=== PATIENT | female | born 1930 | race Caucasian/White ===

== ENCOUNTER 2017-10-31 11:43 | Outpatient (CLI) | payer MEDICARE ==
--- NOTE | 2017-10-31 15:09 | RAD ---
THREE VIEWS OF THE SACRUM AND COCCYX: Date: 10-31-17 History: Chronic low back pain. FINDINGS: The coccyx is not well seen due to technique of the exam. However, the remainder of the sacrum demons trates no obvious lytic or sclerotic lesions. No fracture is appreciated. Sacroiliac joints are symme tric in appearance bilaterally. Degenerative changes are seen in the lower lumbar spine. IMPRESSION: 1. Coccyx is not well seen on this exam. There is otherwise no obvious osseous abnormality involving the sacrum. 2. Degenerative changes in the lower lumbar spine with suggestion of trace anterolisthesis of L4 on L 5. 3. Vascular calcifications. POS: [facility]
--- NOTE | 2017-10-31 15:09 | RAD ---
LUMBAR SPINE THREE VIEWS: History: Chronic low back pain. FINDINGS: Degenerative changes are present in the lumbar spine with mild dextroscoliosis. No fracture, subluxat ion, or bony destruction is seen. There are vascular calcifications. IMPRESSION: Lumbar spondylosis. POS: [facility]
== END 2017-10-31 11:44 | disposition home or self-care (01) ==
LOC: MADRAD 11:43
PROVIDERS: ATTEND General Practice
DX: M54.5 Low back pain (principal); M47.896 Other spondylosis, lumbar region; I70.90 Unspecified atherosclerosis
CPT/HCPCS: 72100; 72220

== ENCOUNTER 2019-06-28 13:56 | Emergency (ER) | payer MEDICARE ==
[2019-06-28] MEDS ORDERED: Pantoprazole 40 MG VIAL ONE (15:22)
[2019-06-28] MEDS ORDERED: Lidocaine Viscous Sol 2% 15 ml UD Cup ONE (15:30)
[2019-06-28] MEDS ORDERED: Mag-Al Plus 1200 MG/1200 MG/120 MG/30 ML UDCUP ONE (15:30)
[2019-06-28 16:17] LABS: ALT (SGPT) 25 U/L (8-55); AST (SGOT) 27 U/L (5-34); Albumin 3.8 g/dL (3.4-4.8); Alkaline Phosphatase 74 U/L (40-110); Anion Gap 14 mmol/L (10-20); BUN (Urea Nitrogen) 11 mg/dL (9.8-20.1); Bilirubin, Total 0.5 mg/dL (0.2-1.2); Calc. Creatinine Clearance 0 mL/min (70-130); Calcium 9.7 mg/dL (7.8-10.44); Carbon Dioxide 28 mmol/L (23-31); Chloride 103 mmol/L (98-107); Estimated GFR-MDRD 66; Globulin 2.9 g/dL (2.4-3.5); Glucose 81 mg/dL (83-110); Lipase 24 U/L (8-78); Potassium 3.8 mmol/L (3.5-5.1); Protein, Total 6.7 g/dL (6.0-8.3); Sodium 141 mmol/L (136-145)
[2019-06-28 16:34] LABS: CKMB 1.9 ng/mL (0-6.6)
[2019-06-28 16:36] LABS: #Basophils 0.1 thou/uL (0.0-0.2); #Eosinphils 0.1 thou/uL (0.0-0.7); #Lymphocytes 1.4 thou/uL (1.20-3.40); #Monocytes 0.7 thou/uL (0.11-0.59); #Neutrophils 4.8 thou/uL (1.40-6.50); %Basophils 1.5 % (0.0-1.0); %Eosinophils 1.9 % (0.0-10.0); %Lymphocytes 19.4 % (21.0-51.0); %Neutrophils 67.2 % (42.0-75.0); Hemoglobin 13.7 g/dL (12.0-16.0); Hypochromia SLIGHT = 6-15 cells (100X) (0-5/hpf); MDiff Complete? YES; Mean Corpuscular HGB CONC 29.7 g/dL (32.0-36.0); Mean Corpuscular Hemoglobin 27.3 pg (27.0-31.0); Mean Corpuscular Volume 91.9 fL (78.0-98.0); Mean Platelet Volume 8.6 fL (7.4-10.4); Platelet Count 220 thou/uL (130-400); Platelet Morphology Comment Appears Adequate; RBC Distribution Width 13.7 % (11.5-14.5); Red Blood Cell (RBC) Count 5.01 mill/uL (4.20-5.40); White Blood Cell (WBC) Count 7.1 thou/uL (4.8-10.8)
[2019-06-28] MEDS ORDERED: Aspirin Chewable 81 MG TAB ONE (16:45)
[2019-06-28] MEDS ORDERED: Metoprolol Tartrate 50 MG TAB ONE (16:45)
[2019-06-28 17:06] LABS: CKMB 1.9 ng/mL (0-6.6)
--- NOTE | 2019-06-28 17:36 | RAD ---
RADIOGRAPH CHEST 1 VIEW: DATE: 06/28/2019 HISTORY: 88-year-old female with chest pain FINDINGS: The thoracic aorta is tortuous and ectatic. There is no evidence of airspace density, pulmonary edema , or pneumothorax. 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 IMPRESSION: 1) No acute pulmonary findings. 2) ectasia of thoracic aorta. 3) pacemaker.
[2019-06-28] MEDS ORDERED: Nitroglycerin 2% Ointment 1 INCH/1 GM Packet ONE (18:45)
--- NOTE | 2019-06-28 18:57 | CT ---
CT THORAX WITH CONTRAST: DATE: 06/28/2019 HISTORY: 88-year-old female with dyspnea and hypertension. COMPARISON: none FINDINGS: No pulmonary thromboemboli is identified. Atherosclerotic calcification and tortuosity of thoracic ao rta without dissection. Images are degraded by patient breathing motion artifact. No consolidation, pulmonary edema, pneumothorax, or pleural effusion. Left subclavian dual lead pacemaker. Nonspecific mildly enlarged multiple mediastinal lymph nodes. No pericardial effusion. Mild cardiomegaly. Small sliding hiatal hernia. IMPRESSION: 1. No pulmonary thromboembolism identified. 2. Atherosclerosis and ectasia of thoracic aorta. 3. Pacemaker. 4. Small sliding hiatal hernia. 5. Mild cardiomegaly.
[2019-06-28] MEDS ORDERED: niCARdipine 25 MG/10 ML VIAL ONE (20:13)
== END 2019-06-28 22:06 | disposition short-term general hospital (02) ==
LOC: MADERS 13:56
DX: I24.9 Acute ischemic heart disease, unspecified (principal); I10 Essential (primary) hypertension; R79.89 Other specified abnormal findings of blood chemistry; R10.13 Epigastric pain; M47.9 Spondylosis, unspecified; E78.5 Hyperlipidemia, unspecified; Z79.899 Other long term (current) drug therapy; Z79.82 Long term (current) use of aspirin
CPT/HCPCS: 71045; 71275; 80053; 82150; 82550; 82553; 83690; 83880; 84484; 85025; 85379; 93005; 94760; 96365; 96366; 96375; C9113